=== PATIENT | female | born 1975 | race Caucasian/White ===

== ENCOUNTER → 2018-10-27 | Outpatient (CLI) | payer OTHER ==
--- NOTE | 2018-10-31 16:05 | PATHOLOGY ---
[facility] Accession Number: [id number] . 01 Material submitted: . neck - RIGHT LOWER LATERAL NECK. Modifiers: right, lower, lateral . 01 Clinical history: . None provided . 02 Diagnosis: Skin, "right lower lateral neck", shave biopsy: - Compound nevus. - Nevus is present focally at the base margin of the specimen. (SKM:larisa; 10/31/2018) QMS/10/31/2018 . 02 Electronically signed: . Angel Way MD, Pathologist NPI- [id number] . 01 Gross description: . The specimen is received in formalin, labeled "Archana Noel, right lower lat neck" and consists of a polypoid hernandez-brown skin lesion measuring 0.8 x 0.6 x 0.5 cm. The margin is inked black. It is bisected and entirely submitted in A1. (SDY; 10/28/2018) SYU/SYU . 02 Pathologist provided ICD-10: D22.4 . 02 CPT . 245379 Specimen Comment: A courtesy copy of this report has been sent to Specimen Comment: [phone]. Specimen Comment: Report sent to Performed at: 01 [facility] [address], [place], [place] [id number] MD Ananth Martinez MD Phone: [phone] Performed at: 02 [facility] [address] [place], [place] [id number] MD Cleveland Malloy MD Phone: [phone]
== END | disposition home or self-care (01) ==
LOC: PMG 17:32
PROVIDERS: ATTEND Family Medicine
DX: L81.9 Disorder of pigmentation, unspecified (principal)
CPT/HCPCS: 88305